=== PATIENT | male | born 1950 | race Caucasian/White ===

== ENCOUNTER 2021-08-14 11:02 | Emergency (ER) | payer MEDICARE, OTHER ==
[~2021-08-14] VITALS: Ht 167.6 cm; Wt 94.2 kg
[~2021-08-14 11:02] MED LIST: ATOR10TA PO; ESOM20CA PO; TAMS0.4C97 PO
--- NOTE | 2021-08-14 11:36 | PHYS DOC ---
Past History Past Medical History: High Cholesterol Past Surgical History: Tonsillectomy Smoking: Non-smoker Alcohol Use: None Drug Use: None General Adult EDM: Chief Complaint: CHEST PAIN HPI: HPI: 71-year-old male presents with chest pain. This started about 2 hours ago. 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 He describes it as pressure rated 4 out of 10. There is currently no radiation. Denies shortness of breath or diaphoresis. No significant cardiac history. Patient takes medication for his prostate and cholesterol. He has no other complaints at this time. Review of Systems: Review of Systems: Constitutional: Denies fever or chills Eyes: Denies change in visual acuity HENT: Denies nasal congestion or sore throat Respiratory: Denies cough or shortness of breath Cardiovascular: Chest pain GI: Denies abdominal pain, nausea, vomiting, bloody stools or diarrhea : Denies dysuria Musculoskeletal: Denies back pain or joint pain Integument: Denies rash Neurologic: Denies headache, focal weakness or sensory changes Endocrine: Denies polyuria or polydipsia Lymphatic: Denies swollen glands Psychiatric: Denies depression or anxiety Current Medications: Current Meds: Current Medications Medications (Trade) Dose Ordered Sig/Erin Start Time Stop Time Status Last Admin Dose Admin Clonidine HCl (Catapres) 0.1 mg 1X ONCE 08/14/21 11:30 08/14/21 11:31 DC Allergies: Allergies: Allergies Coded Allergies Type Severity Reaction Last Updated Verified No Known Drug Allergies 11/28/15 No Physical Exam: PE: Constitutional: Well developed, well nourished, no acute distress, non-toxic appearance. [] HENT: Normocephalic, atraumatic, bilateral external ears normal, oropharynx moist, no oral exudates, nose normal. [] Eyes: PERRLA, EOMI, conjunctiva normal, no discharge. [] Neck: Normal range of motion, no tenderness, supple, no stridor. [] Cardiovascular: Heart rate 81, regular rhythm, no murmur [] Lungs & Thorax: Bilateral breath sounds clear to auscultation [] Abdomen: Bowel sounds normal, soft, no tenderness, no masses, no pulsatile masses. [] Skin: Warm, dry, no erythema, no rash. [] Back: No tenderness, no CVA tenderness. [] Extremities: No tenderness, no cyanosis, no clubbing, ROM intact, no edema. [] Neurologic: Alert and oriented X 3, normal motor function, normal sensory fun ction, no focal deficits noted. [] Psychologic: Affect normal, judgement normal, mood normal. [] Current Patient Data: Vital Signs: Vital Signs Date Time Temp Pulse Resp B/P (MAP) Pulse Ox O2 Delivery O2 Flow Rate FiO2 08/14/21 11:06 98.0 75 20 174/99 (124) 100 Room Air EKG: EKG: Sinus rhythm, rate 81, leftward axis, no ST elevation or depression, bigeminy. Repeat EKG: Sinus rhythm, rate 76, leftward axis, no ST elevation or depression. Resolved bigeminy. [] Radiology/Procedures: Radiology/Procedures: [] Impressions: XR CHEST 1V Clinical Indication: Reason: CP / Spl. Instructions: / History: Comparison: Two-view chest November 28, 2015. Findings: The cardiomediastinal silhouette is normal. Lungs are clear. There is no pneumothorax. No pleural effusion is appreciated. No acute bone abnormality. IMPRESSION: No acute cardiopulmonary process. Electronically signed by: James Jorge MD (08/14/2021 11:53 AM) [id number] DICTATED AND SIGNED BY: JAMES JORGE MD DATE: 08/14/21 1152 CC: JEFE CAMPO DO; KATIE MEJIA MD ~MTH0 0 Heart Score: C/O Chest Pain: Yes HEART Score for Chest Pain: HEART Score for Chest Pain Response (Comments) Value History Moderately Suspicious 1 ECG Nonspecific Repolarizatio 1 Age > 65 2 Risk Factors 1 or 2 Risk Factors 1 Troponin < Normal Limit 0 Total 5 Risk Factors: Risk Factors: DM, Current or recent (<one month) smoker, HTN, HLP, family history of CAD, obesity. Risk Scores: Score 0 - 3: 2.5% MACE over next 6 weeks - Discharge Home Score 4 - 6: 20.3% MACE over next 6 weeks - Admit for Clinical Observation Score 7 - 10: 72.7% MACE over next 6 weeks - Early Invasive Strategies Course & Med Decision Making: Course & Med Decision Making Pertinent Labs and Imaging studies reviewed. (See chart for details) Patient's initial EKG showed bigeminy but no ST elevation. Initial troponin is 23. Patient's other labs are unremarkable. I have ordered repeat troponin at 2 hours. The repeat troponin is 386. Patient appears to be having an NSTEMI. Repeat EKG shows resolved bigeminy but no ST elevation. Chest x-ray is negative for acute findings. I made the patient aware of these findings and the need to transfer him to another hospital. He is willing to go to [facility]. I spoke with the hospitalist, Dr. Dolan and he has accepted the patient for transfer. I also talked to the auditing manager, Dr. Martinez and he is in agreement with the plan. Patient will be started on heparin drip prior to transport. Patient was given full-strength aspirin. He will transfer by ambulance. [] Dragon Disclaimer: Dragon Disclaimer: This electronic medical record was generated, in whole or in part, using a voice recognition dictation system. Departure Departure: Impression: Primary Impression: NSTEMI (non-ST elevated myocardial infarction) Disposition: 02 SHORT TERM HOSPITAL Admitting Physician: Lisa Dolan Condition: STABLE Referrals: KATIE MEJIA MD (PCP) JEFE ACMPO DO Aug 14, 2021 11:36
[2021-08-14] MEDS: cloNIDine HCL 0.1 MG TABLET PO ONE (11:37)
--- NOTE | 2021-08-14 11:56 | RAD ---
XR CHEST 1V Clinical Indication: Reason: CP / Spl. Instructions: / History: Comparison: Two-view chest November 28, 2015. Findings: The cardiomediastinal silhouette is normal. Lungs are clear. There is no pneumothorax. No pleural eff usion is appreciated. No acute bone abnormality. IMPRESSION: No acute cardiopulmonary process. Electronically signed by: James Jorge MD (08/14/2021 11:53 AM) [id number]
[2021-08-14 12:15] LABS: BASO % 1 % (0-3); EOS # 0.2 x10^3/uL (0.0-0.7); EOS % 4 % (0-3); HEMATOCRIT 46.4 % (39.0-53.0); HEMOGLOBIN 15.7 g/dL (13.0-17.5); LYMPH # 1.1 x10^3/uL (1.0-4.8); LYMPH % 22 % (24-48); MEAN CORPUSCULAR HEMOGLOBIN 31 pg (25-35); MEAN CORPUSCULAR HGB CONC 34 g/dL (31-37); MEAN CORPUSCULAR VOLUME 91 fL (79-100); MONO # 0.4 x10^3/uL (0.0-1.1); MONO % 9 % (0-9); NEUT # 3.2 x10^3uL (1.8-7.7); NEUT % 65 % (31-73); PLATELET COUNT 113 x10^3/uL (140-400); RED BLOOD COUNT 5.13 x10^6/uL (4.30-5.70); RED CELL DISTRIBUTION WIDTH 13.6 % (11.5-14.5)
[2021-08-14 12:19] LABS: CALCIUM 8.8 mg/dL (8.5-10.1); CREATININE 1.2 mg/dL (0.7-1.3); GFR 59.7; POTASSIUM 4.2 mmol/L (3.5-5.1)
[2021-08-14 12:30] LABS: ALBUMIN 4.2 g/dL (3.4-5.0); ALBUMIN/GLOBULIN RATIO 1.6 (1.0-1.7); TOTAL BILIRUBIN 0.6 mg/dL (0.2-1.0); TOTAL PROTEIN 6.9 g/dL (6.4-8.2)
[2021-08-14] MEDS ORDERED: HEPARIN for IV BOLUS 10,000 UNIT/10 ML VIAL. IV PRN (14:15)
[2021-08-14 14:34] VITALS: BP 141/98
[2021-08-14] MEDS: HEPARIN for IV BOLUS 10,000 UNIT/10 ML VIAL. IV ONE (14:34)
[2021-08-14] MEDS: HEPARIN 25,000UTS/250ML PREMIX 250 ML IV PRN (14:35)
[2021-08-14] MEDS: ASPIRIN CHEWABLE 81 MG TABLET. PO ONE (14:47)
[2021-08-14 15:00] LABS: INFLUENZA A PATIENT NEGATIVE (NEGATIVE); INFLUENZA B PATIENT NEGATIVE (NEGATIVE)
--- NOTE | 2021-08-15 01:04 | EKG ---
[address] [address] Test Date: 2021-08-14 Test Time: 11:11:07 Pat Name: KRYSTIN GUZMAN Department: Room: Gender: M Electrical Drafter: DIANE : 1950 Requested By: JEFE CAMPO Order Number: [id number] Reading MD: Alexander Hua Measurements Intervals [place] Rate: 81 P: -66 [place]: 112 QRS: -43 QRSD: 118 T: 65 QT: 378 QTc: 440 Interpretive Statements SINUS RHYTHM VENTRICULAR PREMATURE COMPLEX(ES) ATRIAL PREMATURE COMPLEX(ES), BIGEMINY ABNORMAL LEFT AXIS DEVIATION LEFT ANTERIOR FASCICULAR BLOCK LEFT VENTRICULAR HYPERTROPHY ABNORMAL ECG Electronically Signed On 08-16-2021 18:49:53 E COMMERCE SPECIALIST by Alexander Hua
--- NOTE | 2021-08-15 01:34 | EKG ---
[address] [address] Test Date: 2021-08-14 Test Time: 14:02:41 Pat Name: KRYSTIN GUZMAN Department: Room: Gender: M Last Model Maker: DIANE : 1950 Requested By: JEFE CAMPO Order Number: [id number] Reading MD: Alexander Hua Measurements Intervals [place] Rate: 76 P: 0 NC: 102 QRS: -31 QRSD: 120 T: 6 QT: 386 QTc: 439 Interpretive Statements SINUS RHYTHM VENTRICULAR PREMATURE COMPLEX(ES) ABNORMAL LEFT AXIS DEVIATION LEFT ANTERIOR FASCICULAR BLOCK ABNORMAL ECG Electronically Signed On 08-16-2021 18:45:23 MICROWAVE SUPERVISOR by Alexander Hua
--- NOTE | 2021-08-18 10:49 | NUR ---
CALLED PT TO NOTIFY OF COVID RESULTS. NO ANSWER. MESSAGE LEFT
== END 2021-08-14 15:09 | disposition short-term general hospital (02) ==
LOC: ER 11:02
DX: I21.4 Non-ST elevation (NSTEMI) myocardial infarction (principal); E78.00 Pure hypercholesterolemia, unspecified; Z20.822 Contact with and (suspected) exposure to COVID-19
CPT/HCPCS: 36415; 71045; 80053; 84484; 85025; 85610; 85730; 87428; 93005; 96365; 96376; 99285; C9803; J1644; U0003

== ENCOUNTER 2021-10-21 11:05 | Emergency (ER) | payer MEDICARE, OTHER ==
[~2021-10-21] VITALS: Ht 180.3 cm; Wt 87.0 kg
--- NOTE | 2021-10-21 11:25 | PHYS DOC ---
Past History Past Medical History: High Cholesterol Additional Past Medical Histor: prostate disease Past Surgical History: Coronary Bypass Surgery, Tonsillectomy, Other Additional Past Surgical Histo: carpal tunnel; eye surgery Smoking: Non-smoker Alcohol Use: None Drug Use: None General Adult EDM: Chief Complaint: ABDOMINAL PAIN HPI: HPI: Patient is a 71-year-old male who presents to the emergency department for right lower quadrant pain that started this morning with nausea. Patient rates his pain 4 out of 10. He is unable to describe the pain. No alleviating or aggravating factors. He reports no treatment prior to arrival. Patient reports a history of hyperlipidemia and an enlarged prostate. 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 He denies vomiting, diarrhea, fevers, urinary symptoms. Review of Systems: Review of Systems: Constitutional: see HPI GI: see HPI : see HPI Allergies: Allergies: Allergies Coded Allergies Type Severity Reaction Last Updated Verified No Known Drug Allergies 10/21/21 No Physical Exam: PE: Constitutional: Well developed, well nourished, no acute distress, non-toxic appearance. [] HENT: Normocephalic, atraumatic, bilateral external ears normal, oropharynx moist, no oral exudates, nose normal. [] Eyes: PERRL, EOMI, conjunctiva normal, no discharge. [] Neck: Normal range of motion, no tenderness, supple, no stridor. [] Cardiovascular:Heart rate regular rhythm, no murmur [] Lungs & Thorax: Bilateral breath sounds clear to auscultation [] Abdomen: Bowel sounds normal, soft, no tenderness, no masses, no abdominal guarding or rigidity, no rebound tenderness, negative murphys sign, no pulsatile masses. [] Skin: Warm, dry, no erythema, no rash. [] Back: No tenderness, normal ROM Extremities: No tenderness, no cyanosis, no clubbing, ROM intact, no edema. [] Neurologic: Alert and oriented X 3, normal motor function, normal sensory function, no focal deficits noted. [] Psychologic: Affect normal, judgement normal, mood normal. [] Current Patient Data: Labs: Laboratory Tests Test 10/21/21 11:50 10/21/21 13:10 White Blood Count 6.1 x10^3/uL Red Blood Count 4.65 x10^6/uL Hemoglobin 13.2 g/dL Hematocrit 40.4 % Mean Corpuscular Volume 87 fL Mean Corpuscular Hemoglobin 28 pg Mean Corpuscular Hemoglobin Concent 33 g/dL Red Cell Distribution Width 14.5 % Platelet Count 200 x10^3/uL Neutrophils (%) (Auto) 78 % Lymphocytes (%) (Auto) 12 % Monocytes (%) (Auto) 6 % Eosinophils (%) (Auto) 3 % Basophils (%) (Auto) 1 % Neutrophils # (Auto) 4.8 x10^3uL Lymphocytes # (Auto) 0.7 x10^3/uL Monocytes # (Auto) 0.4 x10^3/uL Eosinophils # (Auto) 0.2 x10^3/uL Basophils # (Auto) 0.0 x10^3/uL Sodium Level 141 mmol/L Potassium Level 4.2 mmol/L Chloride Level 105 mmol/L Carbon Dioxide Level 31 mmol/L Anion Gap 5 Blood Urea Nitrogen 19 mg/dL Creatinine 1.1 mg/dL Estimated GFR (Cockcroft-Gault) 66.0 BUN/Creatinine Ratio 17 Glucose Level 109 mg/dL Calcium Level 9.0 mg/dL Total Bilirubin 0.3 mg/dL Aspartate Amino Transf (AST/SGOT) 19 U/L Alanine Aminotransferase (ALT/SGPT) 28 U/L Alkaline Phosphatase 66 U/L Total Protein 6.6 g/dL Albumin 3.3 g/dL Albumin/Globulin Ratio 1.0 Lipase 204 U/L Urine Collection Type Unknown Urine Color Yellow Urine Clarity Clear Urine pH 6.5 Urine Specific Sumner 1.020 Urine Protein Neg Urine Glucose (UA) Neg mg/dL Urine Ketones (Stick) Neg mg/dL Urine Blood Neg Urine Nitrite Neg Urine Bilirubin Neg Urine Urobilinogen Dipstick 0.2 mg/dL Urine Leukocyte Esterase Neg Urine RBC 0 /HPF Urine WBC Occ /HPF Urine Squamous Epithelial Cells None /LPF Urine Bacteria 0 /HPF Current Medications Medications (Trade) Dose Ordered Sig/Erin Route PRN Reason Start Time Stop Time Status Last Admin Dose Admin Sodium Chloride 1,000 ml @ 1,000 mls/hr Q1H IV 10/21/21 11:30 10/21/21 12:29 DC 10/21/21 11:50 Fentanyl Citrate (Fentanyl 2ml Vial) 50 mcg 1X ONCE IVP 10/21/21 11:30 10/21/21 11:31 DC 10/21/21 11:53 Ondansetron HCl (Zofran) 4 mg 1X ONCE IVP 10/21/21 11:30 10/21/21 11:31 DC 10/21/21 11:51 Vital Signs: Vital Signs Date Time Temp Pulse Resp B/P (MAP) Pulse Ox O2 Delivery O2 Flow Rate FiO2 10/21/21 11:15 98.2 81 18 175/106 (129) 99 Room Air EKG: EKG: [] Radiology/Procedures: Radiology/Procedures: []REASON: rlq pain, since this morning PROCEDURE: CT ABDOMEN PELVIS WO CONTRAST INDICATION: Reason: rlq pain, since this morning / Spl. Instructions: / History: COMPARISON: None. TECHNIQUE: Axial CT images were obtained through the abdomen and pelvis without intravenous contrast. One or more of the following individualized dose reduction techniques were utilized for this examination: 1. Automated exposure control; 2. Adjustment of the mA and/or kV according to patient size; 3. Use of iterative reconstruction technique. FINDINGS: Calcified granuloma right lower lung. Coronary artery calcific atherosclerosis. Poststernotomy changes with induration the fat in the subcutaneous soft tissues which could be related to prior surgery. Small hiatal hernia. Vascular: Severe calcific atherosclerosis. Fat-containing inguinal hernias left greater than right. Hepatobiliary: No intrahepatic biliary duct dilation. Pancreas: No peripancreatic edema. Spleen: Large low-density region within the spleen measuring up to about 8 cm. Spleen is mildly prominent in size. Renal/Bladder: There is some lobulations or scarring of the right kidney. No significant hydronephrosis. Enlarged prostate. Urinary bladder is well distended at time of exam. Gastrointestinal: Colonic diverticulosis. No periappendiceal inflammatory changes. No dilated loops of bowel to suggest obstruction. Degenerative changes of the hips and spine. IMPRESSION: * No evidence of bowel obstruction or appendicitis. * Confluent region of low density within the spleen. Differential considerations would include a splenic lesion such as a cystic lesion or low- density solid mass with another possible cause including splenic infarct or sequela of prior injury. If further information is needed postcontrast CT, MRI or follow-up ultrasound could be obtained to assess * Severe atherosclerotic disease. Electronically signed by: Ashwini Hobson MD (10/21/2021 12:37 PM) [id number] DICTATED AND SIGNED BY: ASHWINI HOBSON MD DATE: 10/21/21 1221 CC: ADONIS REED APRN; KATIE MEJIA MD ~ Heart Score: C/O Chest Pain: N/A Risk Factors: Risk Factors: DM, Current or recent (<one month) smoker, HTN, HLP, family history of CAD, obesity. Risk Scores: Score 0 - 3: 2.5% MACE over next 6 weeks - Discharge Home Score 4 - 6: 20.3% MACE over next 6 weeks - Admit for Clinical Observation Score 7 - 10: 72.7% MACE over next 6 weeks - Early Invasive Strategies Course & Med Decision Making: Course & Med Decision Making Pertinent Labs and Imaging studies reviewed. (See chart for details) Presents to the emergency department for right lower quadrant pain with nausea. Work-up in the ER consisted of blood work including lipase, urinalysis and CT imaging of abdomen and pelvis without contrast due to national shortage. Mahnaz ent will be treated with IV fluids, nausea and pain medication. Patient's blood work was unremarkable, negative lipase, urinalysis did not show any urinary tract infection. CT scan of abdomen pelvis showed a lesion on patient's splenic patient is not having any left-sided abdominal tenderness. Patient was given a copy of his CT report and he is advised to follow-up with his primary care provider regarding this finding. Upon reevaluation, patient reports that his has resolved and he would like to be discharged home. Patient advised to take Tylenol or ibuprofen if his pain returns. I discussed with patient all findings and diagnostic testing as well as the need to follow-up with PCP for further evaluation and treatment or return to the ER if any new or worsening symptoms. Strict return precautions were also discussed at length. Patient voiced understanding and agreement with the plan. Patient is hemodynamically stable at the time of disposition. Dragon Disclaimer: Dragon Disclaimer: This electronic medical record was generated, in whole or in part, using a voice recognition dictation system. Departure Departure: Impression: Primary Impression: Abdominal pain Qualified Codes: R10.31 - Right lower quadrant pain Disposition: HOME / SELF CARE / HOMELESS Condition: GOOD Referrals: KATIE MEJIA MD (PCP) Patient Instructions: Abdominal Pain (Nonspecific) Additional Instructions: You were seen in the emergency department today for abdominal pain. Your blood work was unremarkable and your urinalysis did not show any urinary tract infection. You were noted to have a lesion on the spleen which you need to follow-up with your primary care provider regarding. ED Tylenol and ibuprofen at home for pain as needed. Increase your fluids. Follow-up with your primary care provider tomorrow regarding your ER visit. Return to the emergency department if you develop abdominal pain, high fevers refractory to treatment, intractable nausea or vomiting, blood in your stools or vomit. ADONIS REED APRN October 21, 2021 11:25
[2021-10-21] MEDS ORDERED: IV NORMAL SALINE 1,000ML 1,000 ML IV SCH (11:30)
[2021-10-21] MEDS ORDERED: ONDANSETRON PF 4 MG/2 ML VIAL. IVP ONE (11:30)
[2021-10-21 12:11] LABS: BASO % 1 % (0-3); EOS # 0.2 x10^3/uL (0.0-0.7); EOS % 3 % (0-3); HEMATOCRIT 40.4 % (39.0-53.0); HEMOGLOBIN 13.2 g/dL (13.0-17.5); LYMPH # 0.7 x10^3/uL (1.0-4.8); LYMPH % 12 % (24-48); MEAN CORPUSCULAR HEMOGLOBIN 28 pg (25-35); MEAN CORPUSCULAR HGB CONC 33 g/dL (31-37); MEAN CORPUSCULAR VOLUME 87 fL (79-100); MONO # 0.4 x10^3/uL (0.0-1.1); MONO % 6 % (0-9); NEUT # 4.8 x10^3uL (1.8-7.7); NEUT % 78 % (31-73); PLATELET COUNT 200 x10^3/uL (140-400); RED BLOOD COUNT 4.65 x10^6/uL (4.30-5.70); RED CELL DISTRIBUTION WIDTH 14.5 % (11.5-14.5); WHITE BLOOD COUNT 6.1 x10^3/uL (4.0-11.0)
[2021-10-21 12:24] LABS: CREATININE 1.1 mg/dL (0.7-1.3); POTASSIUM 4.2 mmol/L (3.5-5.1)
[2021-10-21 12:31] LABS: ALBUMIN 3.3 g/dL (3.4-5.0); TOTAL BILIRUBIN 0.3 mg/dL (0.2-1.0); TOTAL PROTEIN 6.6 g/dL (6.4-8.2)
--- NOTE | 2021-10-21 12:40 | RAD ---
INDICATION: Reason: rlq pain, since this morning / Spl. Instructions: / History: COMPARISON: None. TECHNIQUE: Axial CT images were obtained through the abdomen and pelvis without intravenous contrast. One or more of the following individualized dose reduction techniques were utilized for this examinat ion: 1. Automated exposure control; 2. Adjustment of the mA and/or kV according to patient size; 3 . Use of iterative reconstruction technique. FINDINGS: Calcified granuloma right lower lung. Coronary artery calcific atherosclerosis. Poststernotomy changes with induration the fat in the subcu taneous soft tissues which could be related to prior surgery. Small hiatal hernia. Vascular: Severe calcific atherosclerosis. Fat-containing inguinal hernias left greater than right. Hepatobiliary: No intrahepatic biliary duct dilation. Pancreas: No peripancreatic edema. Spleen: Large low-density region within the spleen measuring up to about 8 cm. Spleen is mildly promi nent in size. Renal/Bladder: There is some lobulations or scarring of the right kidney. No significant hydronephros is. Enlarged prostate. Urinary bladder is well distended at time of exam. Gastrointestinal: Colonic diverticulosis. No periappendiceal inflammatory changes. No dilated loops o f bowel to suggest obstruction. Degenerative changes of the hips and spine. IMPRESSION: * No evidence of bowel obstruction or appendicitis. * Confluent region of low density within the spleen. Differential considerations would include a spl enic lesion such as a cystic lesion or low-density solid mass with another possible cause including s plenic infarct or sequela of prior injury. If further information is needed postcontrast CT, MRI or f ollow-up ultrasound could be obtained to assess * Severe atherosclerotic disease. Electronically signed by: Jeison Hobson MD (10/21/2021 12:37 PM) [id number]
[2021-10-21 14:34] LABS: BACTERIA,URINE 0 /HPF (0-FEW); CLARITY,URINE CLEAR; COLOR,URINE YELLOW; GLUCOSE,URINE NEG (NEG); NITRITE,URINE NEG (NEG); RBC,URINE 0 /HPF (0-2); UROBILINOGEN,URINE 0.2 mg/dL (0.2 mg/dL); WBC,URINE OCC /HPF (0-4)
[2021-10-21 14:55] VITALS: BP 155/100
== END 2021-10-21 14:55 | disposition home or self-care (01) ==
LOC: ER 11:05
DX: R10.31 Right lower quadrant pain (principal); E78.00 Pure hypercholesterolemia, unspecified; E78.5 Hyperlipidemia, unspecified; Z95.1 Presence of aortocoronary bypass graft
CPT/HCPCS: 36415; 74176; 80053; 81001; 83690; 85025; 96361; 96374; 96375; 99284; J2405; J3010; J7030